=== PATIENT | female | born 1940 | race Caucasian/White ===

== ENCOUNTER → 2017-12-30 | Day surgery (SDC) | payer MEDICARE, BC ==
[~2017-12-30] MED LIST: Lactated Ringers 1,000 ML IV SCH; Propofol 200 MG/20 ML SDV IV ONE
[2017-12-30] MEDS: Lactated Ringers 1,000 ML IV SCH (07:58)
--- NOTE | 2018-01-02 08:10 | OR ---
DATE OF OPERATION: 12/30/2017 PREOPERATIVE DIAGNOSIS: FOLLOWUP POLYPS. POSTOPERATIVE DIAGNOSIS: FOLLOWUP POLYPS. SURGEON: Alli Byrne MD PROCEDURE: FULL-LENGTH COLONOSCOPY. ANESTHESIA: TIRE BUFFER due to advanced age. COMPLICATIONS: None. SPECIMEN: None. FINDINGS: 1. Full-length colonoscopy. 2. Yan-diverticulosis. RECOMMENDATIONS: Colonoscopy on an as needed basis only. INDICATIONS: The patient was in for routine physical. She apparently in the past has had some polyps removed. She has been having some diarrhea. Dr. Atkins sent her for both indications. DESCRIPTION OF PROCEDURE: The patient was prepped and draped, placed in the left lateral decubitus position. A lubricated Olympus colonoscope was inserted and easily advanced to the cecum. Direct visualization of the ileocecal valve and appendiceal orifice was accomplished. The bowel prep was adequate. 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 Most severe is expected in the sigmoid area, [id number] in that portion of the bowel. Throughout the length of the colon, I could find no signs of any polyps, mass, ulceration, or bleeding sites. No vascular abnormalities or signs of colitis. The rectal vault was benign. I could not retroflex due to the shallowness of the vault but upon withdrawal of the scope, direct visualization showed no perianal lesions. Air was suctioned as best as possible. Scope removed without complication. LALITA/MANFRED /[id number]
== END ==
LOC: CC.SDS 07:47
PROVIDERS: ATTEND Family Medicine
DX: K57.30 Diverticulosis of large intestine without perforation or abscess without bleeding (principal); R19.7 Diarrhea, unspecified; I10 Essential (primary) hypertension; M19.90 Unspecified osteoarthritis, unspecified site; E55.9 Vitamin D deficiency, unspecified; E78.5 Hyperlipidemia, unspecified; M85.80 Other specified disorders of bone density and structure, unspecified site; Z86.010 Personal history of colon polyps; Z79.82 Long term (current) use of aspirin; Z79.899 Other long term (current) drug therapy; Z98.890 Other specified postprocedural states
CPT/HCPCS: J2704; J7120

== ENCOUNTER 2022-08-07 08:13 | Emergency (ER) | payer MEDICARE, BC ==
[2022-08-07] MEDS ORDERED: Sodium Chloride 0.9% 10 ML Syringe FLUSH PRN (08:15)
[2022-08-07] MEDS ORDERED: Sodium Chloride 0.9% 1,000 ML IV ONE (08:15)
[2022-08-07] MEDS ORDERED: Ondansetron 4 MG/2 ML SDV IVPUSH STA (08:16)
== END 2022-08-07 10:54 | disposition home or self-care (01) ==
LOC: CC.ED 08:13
DX: A04.72 Enterocolitis due to Clostridium difficile, not specified as recurrent (principal); E86.0 Dehydration; Z79.82 Long term (current) use of aspirin
CPT/HCPCS: 36415; 80053; 85025; 86140; 96361; 96374; 99284; 99284-25; J2405; J7030